=== PATIENT | female | born 1955 | race Caucasian/White ===

== ENCOUNTER 2020-01-10 11:23 | Emergency (ER) | payer SELFPAY ==
[~2020-01-10] VITALS: Ht 162.6 cm; Wt 83.0 kg
[2020-01-10 11:24] VITALS: BP 174/78
--- NOTE | 2020-01-10 12:12 | NUR ---
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 WOUND WAS WASHED BY AN HEALTH SAF[employer] INSTRUCTOR AT [employer] AND DRESSED.
[2020-01-10] MEDS ORDERED: bacitracin 15gm ointment TP ONE (12:45)
[2020-01-10] MEDS ORDERED: TETanus/Pertussis (Acell)/Diphther VAC/PF (Tdap-Adult) 0.5ml syringe IMVAC ONE (12:45)
[2020-01-10] MEDS ORDERED: AMOX-422 PO (13:40)
== END 2020-01-10 14:08 | disposition home or self-care (01) ==
LOC: ER 11:23
DX: S61.412A Laceration without foreign body of left hand, initial encounter (principal); Z79.899 Other long term (current) drug therapy; W54.0XXA Bitten by dog, initial encounter; Y93.89 Activity, other specified; Y92.89 Other specified places as the place of occurrence of the external cause; Y99.8 Other external cause status
CPT/HCPCS: 12004; 90471; 90715; 99283